=== PATIENT | female | born 1945 | race Caucasian/White ===

== ENCOUNTER 2016-08-25 13:19 | Emergency (ER) | payer OTHER ==
[2016-08-25 13:48] VITALS: BP 156/77; PULSE 76; TEMP 97.5; BMI 28.1
[2016-08-25] MEDS ORDERED: IBUPROFEN 400 MG TABLET (FP) PO ONE ×2 (14:06→14:08)
--- NOTE | 2016-08-25 14:12 | PDOC ---
History of Present Illness - General Chief Complaint: Injury Stated Complaint: FALL/ INNER RT LEG Time Seen by Provider: 08/25/16 13:53 History Source: Patient - History of Present Illness Occurred: reports: this afternoon Severity: Yes: moderate Lower Extremity Pain Location: right: ankle, knee, hip Method of Injury: Yes: fell Past History - Past Medical History Allergies/Adverse Reactions: Allergies Allergy/AdvReac Type Severity Reaction Status Date / Time No Known Allergies Allergy Verified 08/25/16 13:43 Home Medications: Ambulatory Orders Ibuprofen [Motrin -] 800 mg PO Q6H #30 tablet 08/25/16 Tramadol HCl 50 mg PO Q6H #30 tablet MDD 200 08/25/16 Asthma: Yes - Psycho/Social/Smoking Cessation Hx Suicidal Ideation: No Smoking History: Never smoked Review of Systems - Review of Systems Musculoskeletal: Yes: Joint Pain, Joint Swelling. No: Back Pain, Neck Pain Neurological: No: Headache, Dizziness *Physical Exam - Vital Signs Last Vital Signs Temp Pulse Resp BP Pulse Ox 97.5 F L 76 16 156/77 96 08/25/16 13:43 08/25/16 13:43 08/25/16 13:43 08/25/16 13:43 08/25/16 13:43 - Physical Exam General Appearance: Yes: Appropriately Dressed, Mild Distress HEENT: positive: Normal Voice Neck: positive: Supple. negative: Tender Respiratory/Chest: negative: Respiratory Distress Gastrointestinal/Abdominal: positive: Soft. negative: Tender Musculoskeletal: negative: Vertebral Tenderness Extremity: positive: Tender, Swelling (to R ankle diffusely) Integumentary: positive: Dry, Warm Neurologic: positive: Fully Oriented, Alert, Normal Mood/Affect Procedures - Splinting Splint Location: Right: Ankle Hand-Made Type: orthoglass Splint Type: Yes: Long Leg (posterior splint) Post-Proc Neuro Vasc Exam: normal Abner Bandage: 4" (2) Complications: No ED Treatment Course - RADIOLOGY Radiology Studies Ordered: Category Date Time Status ANKLE & FOOT-RIGHT* [RAD] Stat Radiology 08/25/16 14:06 Ordered HIP & PELVIS-RIGHT [RAD] Stat Radiology 08/25/16 14:06 Ordered KNEE 2 POS-RIGHT [RAD] Stat Radiology 08/25/16 14:06 Ordered Medical Decision Making - Medical Decision Making 08/25/16 14:06 71-year-old female, denies any significant history, here with right lower extremity pain status post fall. Patient states about an hour ago while in supermarket, she slipped while entering store and landed mostly on her right side. Has been unable to bear weight since. Denies hitting head. No loc, headache, dizziness, visual changes, nausea or vomiting. Not on any blood thinners. Denies any neck, back or abdominal pain at this time. No chest pain or dizziness prior to fall See exam RLE pain s/p mec fall Unable to bear weight w/ mod swelling to R ankle, HIP NT w. no LE deformity Possibly sprain, r/o fx -XR -pain control 08/25/16 14:54 Acute distal fibular fracture with widened mortise and swelling on x-ray as per radiology. Knee and hip unremarkable. Pending ortho consult for recs and referral 08/25/16 16:08 Case discussed with Ortho PA who recommend long-leg posterior splint, NWB w/ cructhes and for patient to walk in to office tomorrow morning *DC/Admit/Observation/Transfer Diagnosis at time of Disposition: Ankle fracture, right Qualifiers: Encounter type: initial encounter Fracture type: closed Qualified Code(s): S82.891A - Other fracture of right lower leg, initial encounter for closed fracture - Discharge Dispostion Disposition: HOME Condition at time of disposition: Good - Prescriptions Prescriptions: Ibuprofen [Motrin -] 800 mg PO Q6H #30 tablet Tramadol HCl 50 mg PO Q6H #30 tablet MDD 200 - Referrals Referrals: Vamshi Schulte [Primary Care Provider] - Shreyas Izaguirre MD [Staff Physician] - - Patient Instructions Printed Discharge Instructions: DI for Ankle Fracture Additional Instructions: You have an ankle fracture. Please keep splint on and using crutches for non- weightbearing. Please walking to orthopedic clinic tomorrow morning between 8 and 10 AM located at [address] Cesar Bolse or the orthopedic PA. Take pain medications as directed
== END 2016-08-25 16:31 | disposition home or self-care (01) ==
LOC: JERFT 13:19
PROC: 2W3LX1Z Immobilization of Right Lower Extremity using Splint (ICD-10-PCS; principal; 2016-08-25)
DX: S82.891A Other fracture of right lower leg, initial encounter for closed fracture (principal); W01.0XXA Fall on same level from slipping, tripping and stumbling without subsequent striking against object, initial encounter; Y93.89 Activity, other specified; Y92.512 Supermarket, store or market as the place of occurrence of the external cause; Y99.8 Other external cause status
CPT/HCPCS: 29505; 73523-TC; 73560-TC-RT; 73610-TC-RT; 73630-TC-RT; 99281-25